=== PATIENT | female | born 2000 | race American Indian/Alaskan Native ===

== ENCOUNTER 2020-12-08 07:29 | Outpatient (CLI) | payer MEDICAID | END 2020-12-08 09:35 | disposition home or self-care (01) | LOC: TRG 07:29 → APU 07:32 | CPT/HCPCS: 59025 ==

== ENCOUNTER 2020-12-10 11:40 | Outpatient (CLI) | payer MEDICAID ==
[2020-12-10 12:02] VITALS: BP 114/68
--- NOTE | 2020-12-10 14:33 | Ultrasound Report ---
US OB LIMITED US OB BPP WO NON-STRESS INDICATION / CLINICAL INFORMATION: wellbeing and ELMA. COMPARISON: None available. FINDINGS: breathing movement = 2 Gross body movement = 2 tone = 2 Qualitative amniotic fluid volume = 2 Total biophysical score = 8/8 Amniotic fluid index is 6.8 cm. heart rate is 150 beats per minute. IMPRESSION: 1. biophysical profile = 8/8 2. Amniotic fluid index is 6.8 cm, at the lower limits of normal. 3. There are no images documenting position. Signer Name: Saeid Pate MD Signed: 12/10/2020 2:29 PM Workstation Name: [id number]
== END 2020-12-10 14:30 | disposition home or self-care (01) ==
LOC: TRG 11:40 → APU 11:44 → TRG 14:30
DX: Z34.93 Encounter for supervision of normal pregnancy, unspecified, third trimester (principal); Z3A.39 39 weeks gestation of pregnancy
CPT/HCPCS: 36415; 59025; 76815; 76819; 84112

== ENCOUNTER 2020-12-11 20:28 | Inpatient (IN) | payer MEDICAID ==
[2020-12-12] MEDS ORDERED: LOPERAMIDE 2 MG CAP PO PRN (02:20)
[2020-12-12] MEDS ORDERED: ONDANSETRON 4 MG/2 ML INJ IV PRN ×2 (02:20→16:04)
[2020-12-12] MEDS ORDERED: CARBOPROST TROMETHAMINE 250 MCG/1 ML INJ IM PRN (02:20)
[2020-12-12] MEDS ORDERED: OXYTOCIN 10 UNIT/1 ML INJ IM PRN (02:20)
[2020-12-12] MEDS ORDERED: miSOPROStol 200 MCG TAB PR PRN (02:20)
[2020-12-12] MEDS ORDERED: MINERAL OIL 30 ML ORAL LIQD PO PRN (02:20)
[2020-12-12] MEDS ORDERED: LIDOCAINE (2%) 20 MG/1 ML VIAL 20 ML MDV INFILTRATI ONE (02:20)
[2020-12-12] MEDS ORDERED: METHYLERGONOVINE MALEATE 0.2 MG/ML VIAL IM PRN (02:20)
[2020-12-12] MEDS ORDERED: BUTORPHANOL 2 MG/1 ML INJ IV PRN (02:20)
[2020-12-12] MEDS ORDERED: ACETAMINOPHEN 325 MG TAB PO PRN ×2 (02:20→16:04)
[2020-12-12] MEDS ORDERED: TERBUTALINE 1 MG/1 ML INJ SUB-Q PRN (02:20)
[2020-12-12] MEDS ORDERED: ePHEDrine SULFATE 50 MG/1 ML INJ IV PRN ×3 (02:20→11:50)
[2020-12-12] MEDS ORDERED: AMPICILLIN/NS 2 GM/100 ML 2 GM/100 ML BAG IV ONE (02:20)
[2020-12-12] MEDS ORDERED: LACTATED RINGERS 1,000 ML IV SCH (02:30)
--- NOTE | 2020-12-12 02:42 | History and Physical Report ---
History of Present Illness Date of examination: 12/12/20 Date of admission: 12/12/20 Chief complaint: Contractions History of present illness: 19 year old presents with contractions. Reports possible leakage of fluid. Denies vaginal bleeding. Reports active movement. Patient receives care from [facility] but records are not available. Will request records from office when they open in the morning. Patient states her due date is 12/17/20. Patient denies any complications during this . Will request labs when [facility] office opens later this morning. Past History Past Medical History: other (obesity) Past Surgical History: no surgical history [facility] [employer] [facility] History: denies: chlamydia, gonorrhea, hepatitis B, hepatitis C, herpes, HIV, syphilis, trichomonas Family/Genetic History: diabetes, hypertension, cancer, other (patient's mother had DVT) Social history: no significant social history, full code. denies: smoking, alcohol abuse, prescription drug abuse, IV drug use - Obstetrical History Expected Date of Delivery: 12/17/20 Actual Gestation: 39 Week(s) 2 Day(s) : 1 Para: 0 Hx # Term Pregnancies: 0 Number of Pregnancies: 0 Spontaneous Abortions: 0 Induced : 0 Number of Living Children: 0 Medications and Allergies Allergies Allergy/AdvReac Type Severity Reaction Status Date / Time No Known Allergies Allergy Verified 12/10/20 12:08 Active Meds: Active Medications Acetaminophen (Acetaminophen 325 Mg Tab) 650 mg PO Q4H PRN PRN Reason: Pain, Mild (1-3) Butorphanol Tartrate (Butorphanol 2 Mg/1 Ml Inj) 1 mg IV Q2H PRN PRN Reason: Pain, Moderate(4-6) LABOR PAIN Carboprost Tromethamine (Carboprost Tromethamine 250 Mcg/1 Ml Inj) 250 mcg IM ONCE PRN PRN Reason: Uterine Bleeding Ephedrine Sulfate (Ephedrine Sulfate 50 Mg/1 Ml Inj) 10 mg IV Q2M PRN PRN Reason: Hypotension Fentanyl (Fentanyl 100 Mcg/2 Ml Inj) 100 mcg IV Q2H PRN PRN Reason: Pain,Severe (7-10) LABOR PAIN Oxytocin/Sodium Chloride (Pitocin/Ns 30 Unit/500ml) 30 units in 500 mls @ 2 mls/hr IV TITR GERDA; Protocol Lactated Ringer's (Lactated Ringers) 1,000 mls @ 125 mls/hr IV DIRECT GERDA Oxytocin/Sodium Chloride (Pitocin/Ns 30 Unit/500ml) 30 units in 500 mls @ 40 mls/hr IV TITR GERDA; Protocol Ampicillin Sodium (Ampicillin/Ns 2 Gm/100 Ml) 2 gm in 100 mls @ 100 mls/hr IV ONCE ONE; Protocol Stop: 12/12/20 03:19 Ampicillin Sodium (Ampicillin/Ns 1 Gm/50 Ml) 1 gm in 50 mls @ 100 mls/hr IV Q4H GERDA; Protocol Loperamide HCl (Loperamide 2 Mg Cap) 2 mg PO ONCE PRN PRN Reason: give with Hemabate Methylergonovine Maleate (Methylergonovine Maleate 0.2 Mg/Ml Vial) 0.2 mg IM ONCE PRN PRN Reason: Uterine Bleeding Mineral Oil (Mineral Oil 30 Ml Oral Liqd) 30 ml PO QHS PRN PRN Reason: Constipation Misoprostol (Misoprostol 200 Mcg Tab) 800 mcg IN ONCE PRN PRN Reason: Uterine Bleeding Ondansetron HCl (Ondansetron 4 Mg/2 Ml Inj) 4 mg IV Q8H PRN PRN Reason: Nausea And Vomiting Oxytocin (Oxytocin 10 Unit/1 Ml Inj) 10 unit IM ONCE PRN PRN Reason: Uterine Bleeding Terbutaline Sulfate (Terbutaline 1 Mg/1 Ml Inj) 0.25 mg SUB-Q ONCE PRN PRN Reason: Hyperstimulation/Hypertonicity Review of Systems All systems: negative (contractions and leaking of fluid) - Vital Signs Vital signs: Vital Signs Pulse BP Pulse Ox 107 H 102/67 97 12/11/20 20:47 12/11/20 20:47 12/11/20 20:47 Temp Pulse Resp BP Pulse Ox 98.6 F 92 H 18 102/67 98 12/11/20 20:54 12/12/20 02:36 12/11/20 20:54 12/11/20 20:54 12/12/20 02:36 - Physical Exam Abdomen: Positive: normal appearance, soft. Negative: distention, tenderness, guarding, rigidity Genitourinary (Female): Positive: normal external genitalia, normal perenium. Negative: perineal/vulvar lesions Vagina: Positive: other (small amount of clear fluid seen leaking from vagina) Uterus: Positive: enlarged. Negative: tender Anus/Rectum: Positive: normal perianal skin Extremities: Negative: tenderness, edema - Obstetrical FHR: category 2 Uterine Contraction Monitor Mode: External Cervical Dilatation: 2 Cervical Effacement Percentage: 60 station: -3 Uterine Contraction Pattern: Irregular Uterine Contraction Intensity: Mild Results Result Diagrams: 12/12/20 02:33 All other labs normal. Assessment and Plan A: at 39 weeks, 2 days gestation. Early labor. SROM. GBS unknown. Borderline low ELMA. No records available. P: Admit. EFM. GBS prophylaxis. Request records as soon as office opens this AM. Augmentation of labor if needed.
[2020-12-12 02:53] LABS: Hematocrit 39.8 % (30.3-42.9); Hemoglobin 13.3 gm/dl (10.1-14.3); Mean Corpuscular HGB Conc 34 % (30-34); Mean Corpuscular Volume 87 fl (79-97); Platelet Count 198 K/mm3 (140-440); Red Blood Count 4.58 M/mm3 (3.65-5.03); Red Cell Distribution Width 13.5 % (13.2-15.2)
[2020-12-12] MEDS ORDERED: OXYTOCIN DRIP 30 UNITS/500 ML BAG IV SCH ×2 (03:00)
[2020-12-12] MEDS: fentaNYL 100 MCG/2 ML INJ IV PRN ×3 (04:09→08:47)
--- NOTE | 2020-12-12 05:18 | Ultrasound Report ---
ULTRASOUND OBSTETRIC LIMITED ULTRASOUND BIOPHYSICAL PROFILE INDICATION / CLINICAL INFORMATION: Evaluate ELMA and BPP. COMPARISON: Limited OB ultrasound from 12/10/2020 FINDINGS: BREATHING MOVEMENT = 2 GROSS BODY MOVEMENT = 2 TONE = 2 QUALITATIVE AMNIOTIC FLUID VOLUME = 2 TOTAL BIOPHYSICAL SCORE = 8/8 AMNIOTIC FLUID INDEX (cm) = 6.9 PRESENTATION: Cephalic. HEART RATE (beats per minute): 147 ADDITIONAL FINDINGS: None. IMPRESSION: 1. Biophysical Score = 8/8 2. Slightly decreased ELMA of 6.9 cm. Signer Name: Alec Holguin MD Signed: 12/12/2020 5:14 AM Workstation Name: [id number]
[2020-12-12] MEDS ORDERED: AMPICILLIN/NS 1 GM/50 ML 1 GM/50 ML BAG IV SCH (07:00)
[2020-12-12] MEDS ORDERED: NALOXONE 2 MG/2 ML INJ IV PRN ×2 (10:33→11:50)
--- NOTE | 2020-12-12 10:33 | Anesthesia Consultation ---
Anesthesia Consult and Med Hx Date of service: 12/12/20 - Airway Anesthetic Teeth Evaluation: Good ROM Head & Neck: Adequate Mental/Hyoid Distance: Adequate Mallampati Class: Class III Intubation Access Assessment: Probably Good - Pulmonary Exam CTA: Yes - Cardiac Exam Cardiac Exam: RRR - Pre-Operative Health Status ASA Pre-Surgery Classification: ASA3 Proposed Anesthetic Plan: Epidural - Pulmonary Hx Smoking: No Hx Asthma: Yes (last attack as a child) Hx Respiratory Symptoms: No SOB: No COPD: No Home Oxygen Therapy: No Hx Pneumonia: No Hx Sleep Apnea: No - Cardiovascular System Hx Hypertension: No Hx Coronary Artery Disease: No Hx Heart Attack/AMI: No Hx Angina: No Hx Percutaneous Transluminal Coronary Angioplasty (PTCA): No Hx Cardia Arrhythmia: No Hx Pacemaker: No Hx Internal Defibrillator: No Hx Valvular Heart Disease: No Hx Heart Murmur: No Hx Peripheral Vascular Disease: No - Central Nervous System Hx Neuromuscular Disorder: No Hx Seizures: No CVA: No Hx Back Pain: Yes Hx Psychiatric Problems: No - Gastrointestinal Hx Ulcer: No Hx Gastroesophageal Reflux Disease: No - Endocrine Hx Renal Disease: No Hx End Stage Renal Disease: No Hx Cirrhosis: No Hx Liver Disease: No Hx Insulin Dependent Diabetes: No Hx Non-Insulin Dependent Diabetes: No Hx Thyroid Disease: No Hx Hypothyroidism: No Hx Hyperthyroidism: No - Hematic Hx Anemia: No Hx Sickle Cell Disease: No - Other Systems Hx Alcohol Use: No Hx Substance Use: No Hx Cancer: No Hx Obesity: Yes
[2020-12-12] MEDS ORDERED: fentaNYL-BUPIV 2 MCG/ML-0.125% 200 MCG/100 ML BAG EPIDURAL SCH ×2 (11:00→12:00)
--- NOTE | 2020-12-12 11:50 | Progress Note ---
Labor Epidural - Labor Epidural Start Time: 10:36 Stop Time: 11:07 Performed by:: TIMBO CUNHA Procedure: Patient is requesting a laboring epidural for laboring pain. Patient IDed, H&P reviewed, all questions and concerns were answered, and consent was signed. Timeout was performed at bedside. Patient in sitting position. Sterile prep and drape was performed. [3] ml of 1% lidocaine skin wheal at L[4]- L [5]. 18- gauge Hustead epidural needle was advanced to loss of resistance with saline technique 9cm. Positive CSF. Needle removed. 3ml 1% Lidocaine skin wheal L3-4. Hustead epidural needleto 9cm, Negative CSF, Negative Blood. Epidural catheter advanced to [12] centimeters. [NEGATIVE] Aspiration [NEGATIVE] test dose. Sterile dressing applied. Patient tolerated procedure.
[2020-12-12] MEDS ORDERED: MAGNESIUM HYDROXIDE (MOM) ORAL LIQD UDC PO PRN (16:04)
[2020-12-12] MEDS ORDERED: PROMETHAZINE 25 MG TAB PO PRN (16:04)
[2020-12-12] MEDS ORDERED: PROMETHAZINE 25 MG RECT SUPP PR PRN (16:04)
[2020-12-12] MEDS ORDERED: oxyCODONE /ACETAMINOPHEN 5-325MG TAB PO PRN (16:04)
[2020-12-12] MEDS ORDERED: LANOLIN/ZINC/DIMETHICONE (LANSINOH) 7 GM TP PRN (16:04)
[2020-12-12] MEDS ORDERED: diphenhydrAMINE 25 MG CAP PO PRN (16:04)
--- NOTE | 2020-12-12 16:09 | Procedure Note ---
OB Delivery Note - Delivery Date of Delivery: 12/12/20 Surgeon: CODY SPARKS JR - Vaginal Delivery presentation: vertex Delivery position: OA Intrapartum events: none, meconium Delivery induction: AROM Delivery augmentation: rupture of membranes Delivery monitor: external FHT, external uterine, internal FHT Route of delivery: Delivery placenta: spontaneous Episiotomy: none Delivery laceration: 2nd degree, vaginal side wall Delivery repair: vicryl Anesthesia: epidural Delivery comments: Status post spontaneous vaginal delivery of male at 1524. Height 20 inches. Weight 3010 g. Apgars 9/9. Fundus firm. Secondary perineal and bilateral sidewall lacerations visualized. The left side laceration was noted be hemostatic and not repaired. The remainder of the lacerations were repaired with hemostasis noted. - Infant A at 1 minute: 9 at 5 minutes: 9 Gender: Male
[2020-12-12] MEDS: WITCH HAZEL/ GLYCERIN PAD TP PRN (22:20)
[2020-12-12] MEDS: IBUPROFEN 600 MG TAB PO SCH (22:21)
[2020-12-13] MEDS: IBUPROFEN 600 MG TAB PO SCH ×4 (05:27→22:52)
[2020-12-13 06:16] LABS: Hemoglobin 10.7 gm/dl (10.1-14.3)
--- NOTE | 2020-12-13 09:06 | Progress Note ---
Assessment and Plan - Patient Problems (1) Status post vaginal delivery Current Visit: Yes Status: Acute Plan to address problem: Patient doing well day 1. Meeting goals. Anticipate discharge in 24 hours. Subjective - Subjective Date of service: 12/13/20 Principal diagnosis: s/p vaginal delivery Interval history: Patient reports he is feeling well, meeting post goals. Baby doing well in the room. Patient reports: appetite normal, voiding normally, pain well controlled, flatus : doing well Objective - Vital Signs Latest vital signs: Vital Signs Temp Pulse Resp BP BP Pulse Ox 12/13/20 07:27 98.0 F 88 18 105/57 97 12/13/20 00:34 98.2 F 101 H 20 98/53 98 12/12/20 22:21 20 12/12/20 20:40 98.2 F 113 H 20 98/63 98 12/12/20 18:50 98.7 F 104 H 20 110/60 97 12/12/20 18:04 108 H 100 12/12/20 17:59 113 H 99 12/12/20 17:54 115 H 98 12/12/20 17:49 114 H 99 12/12/20 17:44 122 H 100 12/12/20 17:41 97 H 103/54 12/12/20 17:39 101 H 100 12/12/20 17:34 97 H 100 12/12/20 17:29 110 H 100 12/12/20 17:24 109 H 98/60 100 12/12/20 17:19 104 H 100 12/12/20 17:18 108 H 83 L 12/12/20 17:14 96 H 100 12/12/20 17:11 95 H 97/56 12/12/20 17:09 96 H 100 12/12/20 17:04 91 H 99 12/12/20 16:59 100 H 99 12/12/20 16:54 102 H 99 12/12/20 16:49 86 98 12/12/20 16:44 100 H 99 12/12/20 16:41 96 H 109/57 12/12/20 16:39 99 H 99 12/12/20 16:34 92 H 99 12/12/20 16:29 97 H 100 12/12/20 16:24 92 H 99 12/12/20 16:19 103 H 99 12/12/20 16:14 91 H 100 12/12/20 16:09 82 98 12/12/20 16:05 89 92 12/12/20 16:04 81 98 12/12/20 15:59 82 100 12/12/20 15:54 80 98 12/12/20 15:49 78 99 12/12/20 15:44 84 98 12/12/20 15:41 82 112/55 12/12/20 15:39 76 100 12/12/20 15:34 90 100 12/12/20 15:29 107 H 100 12/12/20 15:24 129 H 100 12/12/20 15:19 117 H 100 12/12/20 15:14 94 H 100 12/12/20 15:09 100 H 100 12/12/20 15:04 113 H 100 12/12/20 14:59 100 H 100 12/12/20 14:54 82 100 12/12/20 14:49 93 H 99 12/12/20 14:44 116 H 100 12/12/20 14:39 94 H 100 12/12/20 14:34 85 100 12/12/20 14:29 100 H 100 12/12/20 14:24 88 100 12/12/20 14:19 72 99 12/12/20 14:14 92 H 100 12/12/20 14:13 72 108/58 12/12/20 14:09 105 H 100 12/12/20 14:04 81 100 12/12/20 13:59 86 99 12/12/20 13:54 61 100 12/12/20 13:49 69 100 12/12/20 13:45 97.9 F 18 12/12/20 13:44 69 99 12/12/20 13:41 83 104/56 12/12/20 13:39 75 100 12/12/20 13:34 82 100 12/12/20 13:29 64 100 12/12/20 13:24 62 100 12/12/20 13:19 69 100 12/12/20 13:14 68 100 12/12/20 13:11 80 99/54 12/12/20 13:09 84 100 12/12/20 13:04 71 100 12/12/20 12:59 82 100 12/12/20 12:54 64 100 12/12/20 12:49 68 100 12/12/20 12:44 90 100 12/12/20 12:42 70 114/64 12/12/20 12:39 85 100 12/12/20 12:34 69 100 12/12/20 12:29 97 H 100 12/12/20 12:24 104 H 100 12/12/20 12:19 74 99 12/12/20 12:14 72 99 12/12/20 12:10 82 102/57 12/12/20 12:09 73 100 12/12/20 12:08 64 107/57 12/12/20 12:07 82 107/55 12/12/20 12:04 107 H 98/54 100 12/12/20 12:02 86 97/54 12/12/20 12:00 99 H 98/55 12/12/20 11:59 114 H 100 12/12/20 11:58 92 H 96/55 12/12/20 11:56 82 94/50 12/12/20 11:54 98 H 105/51 100 12/12/20 11:53 79 109/54 12/12/20 11:51 100 H 93/54 12/12/20 11:49 113 H 100 12/12/20 11:46 96 H 114/56 12/12/20 11:45 113 H 111/56 12/12/20 11:44 112 H 100 12/12/20 11:42 118 H 111/65 12/12/20 11:39 79 106/52 100 12/12/20 11:36 89 107/64 12/12/20 11:34 79 107/59 99 12/12/20 11:32 96 H 100/58 12/12/20 11:30 67 104/58 12/12/20 11:29 79 91/51 100 12/12/20 11:25 101 H 102/52 12/12/20 11:24 109 H 97 12/12/20 11:22 90 103/53 12/12/20 11:21 88 113/56 12/12/20 11:19 85 98 12/12/20 11:18 81 120/55 12/12/20 11:17 91 H 118/56 12/12/20 11:14 101 H 113/55 98 12/12/20 11:13 96 H 128/59 12/12/20 11:11 96 H 114/56 12/12/20 11:09 85 127/58 100 12/12/20 11:06 98 H 117/60 12/12/20 11:04 91 H 116/59 98 12/12/20 11:03 102 H 118/66 12/12/20 11:01 107 H 159/68 12/12/20 10:59 121 H 140/79 98 12/12/20 10:56 98 H 112/64 12/12/20 10:54 88 105/56 99 12/12/20 10:53 89 70 L 12/12/20 10:52 105 H 120/60 12/12/20 10:50 93 H 120/62 12/12/20 10:49 95 H 96 12/12/20 10:48 91 H 123/60 12/12/20 10:47 97 H 124/61 12/12/20 10:44 82 98 12/12/20 10:43 85 123/60 12/12/20 10:41 79 121/56 12/12/20 10:39 96 H 100 12/12/20 10:28 68 98 12/12/20 10:26 71 94 12/12/20 10:23 95 H 97 12/12/20 10:18 64 98 12/12/20 10:13 93 H 99 12/12/20 10:10 77 147/64 12/12/20 10:08 112 H 97 12/12/20 10:03 96 H 99 12/12/20 09:58 64 98 12/12/20 09:53 70 98 12/12/20 09:48 110 H 97 12/12/20 09:43 79 98 12/12/20 09:38 77 98 12/12/20 09:33 67 99 12/12/20 09:28 80 97 12/12/20 09:23 67 98 12/12/20 09:18 71 98 12/12/20 09:13 65 97 12/12/20 09:09 80 93/52 12/12/20 09:08 72 97 Intake and Output 12/12/20 12/13/20 12/13/20 23:59 07:59 15:59 Intake Total 240 Output Total 300 400 Balance -300 -160 Intake: Oral 240 Output: Urine 300 400 Void 300 400 Other: Total, Intake Amount 240 Total, Output Amount 300 400 # Voids Void 1 2 - Exam Abdomen: Present: normal appearance, normal bowel sounds Uterus: Present: firm
--- NOTE | 2020-12-13 09:07 | Discharge Summary ---
Providers - Providers Date of Admission: 12/12/20 02:22 Date of discharge: 12/14/20 Attending physician: CODY SPARKS JR, MD 12/13/20 08:00 Consult to Stock Worker And Deliverer [CONS] Routine Reason For Exam: Primary care physician: CODY SPARKS JR, MD Hospitalization Reason for admission: induction of labor, rupture of membranes Delivery: Laceration: 2nd degree Other procedures: none complications: none Discharge diagnosis: IUP at term delivered [place] baby: male Hospital course: Patient was admitted for early labor and spontaneous rupture membranes. Patient was induced without issue and delivered a male infant. Patient was discharged in good condition of day 2. Condition at discharge: Good Disposition: DC-01 TO HOME OR SELFCARE - Discharge Diagnoses (1) Status post vaginal delivery Status: Acute Plan - Provider Discharge Summary Activity: routine Diet: routine Instructions: routine Additional instructions: [] Smoking cessation referral if applicable(refer to patient education folder for contact #) [] Refer to [facility] Booklet Call your doctor immediately for: * Fever > 100.5 * Heavy vaginal bleeding ( >1 pad per hour) * Severe persistent headache * Shortness of breath * Reddened, hot, painful area to leg or breast * Drainage or odor from incision. * Keep incision clean and dry at all times and follow doctor's instructions regarding bathing/showering - Follow up plan Follow up: PRIMARY CARE, [Referring] - 6 Weeks
--- NOTE | 2020-12-13 10:42 | Post Anesthesia Evaluation ---
- Post Anesthesia Evaluation Patient Participated: Yes Airway Patent: Yes Stable Respiratory Function: Yes Nausea/Vomiting: No Temp > 96.8F: Yes Pain Manageable: Yes Adequeate Hydration: Yes Anesthesia Complications: No Block Receding Appropriately: Yes Patient on Ventilator: No
[2020-12-14] MEDS: IBUPROFEN 600 MG TAB PO SCH (07:16)
[2020-12-14] MEDS: WITCH HAZEL/ GLYCERIN PAD TP PRN (08:28)
[2020-12-14 09:29] VITALS: BP 89/43
== END 2020-12-14 15:20 | disposition home or self-care (01) | DRG 775 ==
LOC: TRG 20:28 → APU 20:38 → TRG 12-12 02:22 → LD 12-12 02:22 → OBSVTOIN 12-12 02:22 → OB 12-12 18:26
PROVIDERS: ADMIT Obstetrics & Gynecology; ATTEND Obstetrics & Gynecology
PROC: 10E0XZZ Delivery of Products of Conception, External Approach (ICD-10-PCS; principal; 2020-12-12)
PROC: 3E0R3BZ Introduction of Anesthetic Agent into Spinal Canal, Percutaneous Approach (ICD-10-PCS; 2020-12-12)
PROC: 00HU33Z Insertion of Infusion Device into Spinal Canal, Percutaneous Approach (ICD-10-PCS; 2020-12-12)
DX: O99.214 Obesity complicating childbirth (principal); Z3A.39 39 weeks gestation of pregnancy; Z37.0 Single live birth; J45.909 Unspecified asthma, uncomplicated; O70.1 Second degree perineal laceration during delivery; Z20.822 Contact with and (suspected) exposure to COVID-19
CPT/HCPCS: 36415; 59025; 76815; 76819; 84112; 85014; 85018; 85027; 86592; 86850; 86900; 86901; G0378; J0290; J3010; J7120; U0003